=== PATIENT | male | born 1955 | race African-American/Black ===

== ENCOUNTER 2016-07-26 15:57 | Inpatient (IN) | payer BC, OTHER ==
[~2016-07-26] VITALS: Ht 185.4 cm; Wt 125.5 kg
[~2016-07-26 15:57] MED LIST: ACET-1256 PO; ASPEC81 PO; CLB200 PO; ONDA8TAB6 PO; RXC5 PO; SNK PO
[2016-07-26 17:16] LABS: BASO % 0.1 %; BASO ABS # 0.01 K/uL (0-0.2); COMPLETE YES; EOS % 0.1 %; HEMATOCRIT 28.6 % (42-52); IG% 0.2 %; LYMPH ABS # 0.81 K/uL (1.2-3.4); MEAN CELL VOLUME 78.1 fL (80-100); MEAN CORPUSCULAR HEMOGLOBIN 25.1 pg (25-34); MEAN CORPUSCULAR HGB CONC 32.2 g/dl (32-36); MEAN PLATELET VOLUME 8.9 fL (7.4-10.4); MONO % 4.2 %; NEUT % 85.4 %; PLATELET COUNT 381 K/uL (130-400); RED BLOOD COUNT 3.66 M/uL (4.7-6.1); WHITE BLOOD COUNT 8.08 K/uL (4.8-10.8)
[2016-07-26 17:19] LABS: INR 1.1 (0.9-1.1); PROTHROMBIN TIME (PATIENT) 11.4 SECONDS (9.0-12.0)
[2016-07-26 17:25] LABS: BUN/CREATININE RATIO 16.6 (10-20); CALCIUM 9.2 mg/dl (8.5-10.1); CREATININE 1.9 mg/dl (0.60-1.40); POTASSIUM 4.2 mmol/L (3.5-5.1)
--- NOTE | 2016-07-26 17:56 | DIAGNOSTIC IMAGING REPORT ---
CHEST ONE VIEW PORTABLE CLINICAL HISTORY: Back pain. Pneumonia. COMPARISON STUDY: 05/24/2016 FINDINGS: The heart is the upper limits of normal in size. There is aortic tortuosity. Since the prior study, the patient has developed elevation of the interstitium. This could be secondary to either mild cardiogenic interstitial edema, or an interstitial inflammatory process. Clinical and radiographic follow-up is recommended. There are no significant pleural effusions.[ IMPRESSION: Interval development of subtle elevation of the interstitium. This is consistent with either mild interstitial cardiogenic edema, or an interstitial inflammatory process. Clinical and radiographic follow-up is recommended Electronically signed by: Fermin Meza M.D. 07/26/2016 5:55 PM Dictated Date/Time: 07/26/2016 5:53 PM
[2016-07-26] MEDS: SODIUM CHLORIDE 0.9% 1000ML 1,000 ML IV SCH (18:47)
[2016-07-26] MEDS ORDERED: MAGNESIUM HYDROXIDE SUSP 30 ML UDC PO PRN (19:00)
[2016-07-26] MEDS ORDERED: ACETAMINOPHEN 325 MG TAB PO PRN (19:00)
[2016-07-26] MEDS ORDERED: ONDANSETRON INJ 2 MG/ML 2 ML VIAL IV PRN ×2 (19:00→20:30)
[2016-07-26] MEDS ORDERED: POLYETHYLENE (MIRALAX) 17 GM PACK PO PRN (19:00)
--- NOTE | 2016-07-26 19:17 | History and Physical ---
History & Physical Date & Time of Service: Jul 26, 2016 at 18:52 Chief Complaint: Back Pain Primary Care Physician: Edgar Yuen M.D. History of Present Illness This is a 60 yo M with PMHx HTN, borderline diabetes mellitus type II, hx of right hip dislocation x 2, and s/p left total hip arthroplasty by Dr. Rice on 07/16/16. The patient was just discharged on 07/18 sent home with orders to take ASA 81 mg twice daily and wear MAISHA stockings for DVT prophylaxis. The patient reports today was sitting and the table eating at approximately 1600 when he became acutely short of breath, with associated left sided flank pain which wrapped around his back to the right side. He denies ever having chest pain, palpitations, lightheadedness, or dizziness. Pt reports he had not quite been himself, as he had a appetite since the night before. Past Medical/Surgical History Medical Problems: (1) Borderline diabetes Status: Chronic (2) HTN (hypertension) Status: Chronic Surgical Problems: (1) Status post right hip replacement Status: Resolved Family History No pertinent family history Social History Smoking Status: Never Smoker Alcohol Use: socially (may drink up to 6-10 beers once per month) Marital Status: single Occupational Status: retired Immunizations History of Influenza Vaccine: Yes History of Pneumococcal: Yes Allergies Coded Allergies: No Known Allergies (Unverified , 07/26/16) Home Medications Scheduled Acetaminophen (Tylenol), 1,000 MG PO Q8 Aspirin (Aspirin EC Low Dose), 81 MG PO BID Celecoxib (Celebrex), 200 MG PO BID Scheduled PRN Ondansetron Hcl (Zofran), 8 MG PO Q8 PRN for Nausea Oxycodone HCl (Oxycodone HCl), 5-10 MG PO Q4H PRN for Pain Review of Systems Constitutional: No chills, No fever, No sweats ENT: No dental problems, No hearing loss, No sore throat, No tinnitus Respiratory: + dyspnea at rest, + dyspnea on exertion, No cough, No sputum, No wheezing Cardiovascular: No chest pain, No palpitations Abdomen: No constipation, No diarrhea, No nausea, No pain, No vomiting Musculoskeletal: No calf pain, No joint pain, No swelling Genitourinary - Male: No dysuria, No hematuria Neurologic: No numbness/tingling, No paralysis, No weakness Hematologic / Lymphatic: No abnormal bleeding/bruising Integumentary: No rash Physical Exam Vital Signs Date Time Temp Pulse Resp B/P Pulse Ox O2 Delivery O2 Flow Rate FiO2 07/26/16 17:42 97 07/26/16 17:32 100 Room Air 07/26/16 16:10 36.8 104 18 106/65 100 Room Air General Appearance: WD/WN, no apparent distress, + obese Head: normocephalic, atraumatic Eyes: PERRL, EOMI ENT: hearing grossly normal, pharynx normal Neck: no JVD Respiratory/Chest: lungs clear, normal breath sounds, no respiratory distress, no accessory muscle use Cardiovascular: + tachycardia (HR= 100, regular rhythm, S1, S2) Abdomen/GI: normal bowel sounds, non tender, soft, no organomegaly Back: no CVA tenderness Extremities/Musculoskelatal: normal inspection, no calf tenderness, normal capillary refill, no pedal edema Neurologic/Psych: no motor/sensory deficits, alert, normal mood/affect, oriented x 3 Skin: normal color, warm/dry Diagnostics Laboratory Results Results Past 24 Hours Test 07/26/16 16:00 07/26/16 16:54 Range/Units White Blood Count 8.08 4.8-10.8 K/uL Red Blood Count 3.66 4.7-6.1 M/uL Hemoglobin 9.2 14.0-18.0 g/dL Hematocrit 28.6 42-52 % Mean Corpuscular Volume 78.1 80-100 fL Mean Corpuscular Hemoglobin 25.1 25-34 pg Mean Corpuscular Hemoglobin Concent 32.2 32-36 g/dl Platelet Count 381 130-400 K/uL Mean Platelet Volume 8.9 7.4-10.4 fL Neutrophils (%) (Auto) 85.4 % Lymphocytes (%) (Auto) 10.0 % Monocytes (%) (Auto) 4.2 % Eosinophils (%) (Auto) 0.1 % Basophils (%) (Auto) 0.1 % Neutrophils # (Auto) 6.89 1.4-6.5 K/uL Lymphocytes # (Auto) 0.81 1.2-3.4 K/uL Monocytes # (Auto) 0.34 0.11-0.59 K/uL Eosinophils # (Auto) 0.01 0-0.5 K/uL Basophils # (Auto) 0.01 0-0.2 K/uL RDW Standard Deviation 44.9 36.4-46.3 fL RDW Coefficient of Variation 15.7 11.5-14.5 % Immature Granulocyte % (Auto) 0.2 % Immature Granulocyte # (Auto) 0.02 0.00-0.02 K/uL Prothrombin Time 11.4 9.0-12.0 SECONDS Prothromb Time International Ratio 1.1 0.9-1.1 Activated Partial Thromboplast Time 25.5 21.0-31.0 SECONDS Partial Thromboplastin Ratio 1.0 D-Dimer 14291 0-500 ug/L FEU Sodium Level 132 136-145 mmol/L Potassium Level 4.2 3.5-5.1 mmol/L Chloride Level 95 98-107 mmol/L Carbon Dioxide Level 26 21-32 mmol/L Anion Gap 11.0 3-11 mmol/L Blood Urea Nitrogen 32 7-18 mg/dl Creatinine 1.90 0.60-1.40 mg/dl Est Creatinine Clear Calc Drug Dose 57.4 ml/min Estimated GFR () 42.8 Estimated GFR (Non- 37.0 BUN/Creatinine Ratio 16.6 10-20 Random Glucose 142 70-99 mg/dl Calcium Level 9.2 8.5-10.1 mg/dl Bedside Troponin I 0.000 0-0.045 ng/ml Diagnostic Radiology CHEST ONE VIEW PORTABLE CLINICAL HISTORY: Back pain. Pneumonia. COMPARISON STUDY: 05/24/2016 FINDINGS: The heart is the upper limits of normal in size. There is aortic tortuosity. Since the prior study, the patient has developed elevation of the interstitium. This could be secondary to either mild cardiogenic interstitial edema, or an interstitial inflammatory process. Clinical and radiographic follow-up is recommended. There are no significant pleural effusions.[ IMPRESSION: Interval development of subtle elevation of the interstitium. This is consistent with either mild interstitial cardiogenic edema, or an interstitial inflammatory process. Clinical and radiographic follow-up is recommended Electronically signed by: Fermin Meza M.D. 07/26/2016 5:55 PM Dictated Date/Time: 07/26/2016 5:53 PM Impression Assessment and Plan This is a 60 yo M with PMHx HTN, borderline diabetes mellitus type II, hx of right hip dislocation x 2, and s/p left total hip arthroplasty by Dr. Rice on 07/16/16. Shortness of Breath - Admit to tele - S/p L JOSE on 07/[address] Rice - pt was placed on ASA 81 mg BID at that time and instructed to wear [place] - [place] [address] - U/S BLE ordered urgent to r/o DVT - Will start on IVFs - Start heparin gtt with bolus for likely pulmonary embolism, and/or DVT - CTA of the chest not ordered yet with elevated creatinine. Will hydrate overnight and hopefully Cr. will drop overnight to safely give the patient contrast tomorrow. - Tachycardic on exam with HR= 100s - Hold celebrix while on heparin gtt - Follow coags and CBC, PRP with morning labs HTN - Not on any antihypertensive agents - Stable Acute Renal Failure on CKD - Likely secondary to dehydration with poor PO intake - Cr. 1.9, appears that baseline is 1.1-1.2 - Will hydrate overnight, follow am PRP - caution with IV contrast with CTA in morning if not improved. Pre diabetes - Diet controlled, not on medications - Will check A1C - ISS with accuchecks achs DVT ppx: heparin gtt CODE STATUS: Full code Resident Physician Supervision Note: I interviewed and examined the patient. Discussed with Yeny Monroe PAC and agree with findings and plan as documented in the note. Any exceptions or clarifications are listed here: None This pt has back pain along with chest pain, recent ortho surgery strongly suggests DVT/PE. Cr is elevated to make CTA with some risk vital signs are stable car is regular lungs are clear legs with some edema L>R Will perform DVT of legs is positive may consider hydration and acetylcystine to lower Cr and consider CTA in the future, vs just AC for 6 months, alternative would be to do V/Q, this is really just to determine duration of treatment of full AC Documented By: Micah Kingston Level of Care Telemetry Resuscitation Status FULL RESUSCITATION VTE Prophylaxis VTE Risk Assessment Done? Y/N: Yes Risk Level: Moderate Given or contraindicated: Other Anticoagulation, T.E.D. Stockings
--- NOTE | 2016-07-26 20:21 | DIAGNOSTIC IMAGING REPORT ---
ULTRASOUND VENOUS DOPPLER LWR EXT BILA CLINICAL HISTORY: Back pain and leg swelling COMPARISON STUDY: No previous studies for comparison. FINDINGS: Real-time and color flow Doppler imaging were performed. Flow was seen within the femoral, popliteal and calf veins with no intraluminal thrombus demonstrated. The saphenous vein is patent. IMPRESSION: No evidence of lower extremity DVT. Electronically signed by: Fermin Meza M.D. 07/26/2016 8:20 PM Dictated Date/Time: 07/26/2016 8:19 PM
[2016-07-26] MEDS ORDERED: OXYCODONE HCL IR 5 MG TAB (IMMEDIATE RELEASE) PO PRN (20:30)
[2016-07-26] MEDS ORDERED: ACETAMINOPHEN 500 MG TAB PO PRN (20:30)
[2016-07-26] MEDS ORDERED: MoRPHine SULFATE 2 MG/ML CARP IV PRN (20:30)
[2016-07-26] MEDS ORDERED: MoRPHine SULFATE 4 MG/ML 1 ML CARP\\VIAL IV PRN (20:30)
[2016-07-26] MEDS ORDERED: ASPIRIN 81 MG ECTAB PO SCH (21:00)
[2016-07-26] MEDS ORDERED: HEPARIN IV BOLUS 8,000 UNIT in SYRINGE 0 ML IV SCH (21:00)
[2016-07-26] MEDS: HEPARIN 25,000 UNIT/500ML D5W 500 ML IV PRN (21:34)
--- NOTE | 2016-07-26 22:48 | EMERGENCY ROOM VISIT NOTE ---
History Report prepared by Laura: Saundra Garcia Under the Supervision of: Dr. Micah Vicente M.D. First contact with patient: 16:17 Chief Complaint: BACK PAIN Stated Complaint: BACK PAIN History of Present Illness The patient is a 60 year old male who presents to the Emergency Room with complaints of resolved mid to upper back pain that began at 3:45 this afternoon. The patient notes that he was getting ready to leave [employer] when the pain began on the left side of his back. It eventually moved through his entire back to the right side. The pain was sharp and the patient had difficulty breathing due to his discomfort. It resolved after about 20 minutes. In the waiting room, the patient noticed that his fingers were "frozen" and curled up. Currently, the patient does not have any acute pain. The patient occasionally gets left sided mid-upper back pain since just over a year ago, but he notes it does not last long and is not as intense as his pain today. He attributes the occasional pain to the way that he sleeps. The patient had left hip arthroplasty on July [address] Rice. He had a follow up appointment with Dr. Rice today. Denies acute leg swelling or pain, or other complaints. There is no family history of blood clots. He is on aspirin but no other blood thinners. Past medical history includes hypertension and borderline diabetes. He denies chest pain but points to the left anterior axillary line when asked where the pain started. Source of History: patient Onset: 3:45PM Position: back (mid-upper) Quality: sharp, other (Squeezing) Timing: resolved Associated Symptoms: + SOB (resolved), No fevers Note: Other symptoms: fingers swollen and curled Review of Systems See HPI for pertinent positives & negatives. A total of 10 systems reviewed and were otherwise negative. Past Medical & Surgical Medical Problems: (1) Borderline diabetes (2) HTN (hypertension) (3) Instability of right hip joint (4) Right hip pain (5) Shortness of breath at rest Surgical Problems: (1) Post-operative state (2) Post-operative state (3) Post-operative state (4) Status post right hip replacement (5) Status post total hip replacement, right Family History No pertinent family history Social History Smoking Status: Never Smoker Marital Status: single Housing Status: lives with family Occupation Status: retired Current/Historical Medications Scheduled Acetaminophen (Tylenol), 1,000 MG PO Q8 Aspirin (Aspirin EC Low Dose), 81 MG PO BID Celecoxib (Celebrex), 200 MG PO BID Scheduled PRN Ondansetron Hcl (Zofran), 8 MG PO Q8 PRN for Nausea Oxycodone HCl (Oxycodone HCl), 5-10 MG PO Q4H PRN for Pain Allergies Coded Allergies: No Known Allergies (Unverified , 07/26/16) Physical Exam Vital Signs Date Time Temp Pulse Resp B/P Pulse Ox O2 Delivery O2 Flow Rate FiO2 07/26/16 17:42 97 07/26/16 17:32 100 Room Air 07/26/16 16:10 36.8 104 18 106/65 100 Room Air Physical Exam Constitutional: Vital signs reviewed. Eyes: Pupils are equal round reactive to light. Conjunctiva are noninjected. ENT: Pharynx is clear without erythema or exudate. Mucous membranes are moist. Neck supple without meningeal signs. Respiratory: Clear to auscultation bilaterally. Breath sounds are equal bilaterally. Cardiovascular: Regular rate and rhythm. No rubs or gallops. GI: Soft, nondistended and nontender. Bowel sounds are present. Musculoskeletal: No peripheral edema. No lower extremity tenderness. No CVA tenderness. Healing left hip incision without signs of infection. Integumentary: No cyanosis. Neurological: The patient is awake and alert. No focal deficits. Psychiatric: Normal affect. Medical Decision & Procedures ER Provider Diagnostic Interpretation: X-ray results as stated below per interpretation by me and the radiologist. Other radiology results as stated below per my review and the radiologist's interpretation: CHEST ONE VIEW PORTABLE CLINICAL HISTORY: Back pain. Pneumonia. COMPARISON STUDY: 05/24/2016 FINDINGS: The heart is the upper limits of normal in size. There is aortic tortuosity. Since the prior study, the patient has developed elevation of the interstitium. This could be secondary to either mild cardiogenic interstitial edema, or an interstitial inflammatory process. Clinical and radiographic follow-up is recommended. There are no significant pleural effusions.[ IMPRESSION: Interval development of subtle elevation of the interstitium. This is consistent with either mild interstitial cardiogenic edema, or an interstitial inflammatory process. Clinical and radiographic follow-up is recommended Electronically signed by: Fermin Meza M.D. 07/26/2016 5:55 PM Dictated Date/Time: 07/26/2016 5:53 PM ULTRASOUND VENOUS DOPPLER LWR EXT BILA CLINICAL HISTORY: Back pain and leg swelling COMPARISON STUDY: No previous studies for comparison. FINDINGS: Real-time and color flow Doppler imaging were performed. Flow was seen within the femoral, popliteal and calf veins with no intraluminal thrombus demonstrated. The saphenous vein is patent. IMPRESSION: No evidence of lower extremity DVT. Electronically signed by: Fermin Meza M.D. 07/26/2016 8:20 PM Dictated Date/Time: 07/26/2016 8:19 PM Laboratory Results 07/26/16 16:00 Red Blood Count 3.66, Mean Corpuscular Volume 78.1, Mean Corpuscular Hemoglobin 25.1, Mean Corpuscular Hemoglobin Concent 32.2, Mean Platelet Volume 8.9, Neutrophils (%) (Auto) 85.4, Lymphocytes (%) (Auto) 10.0, Monocytes (%) (Auto) 4.2, Eosinophils (%) (Auto) 0.1, Basophils (%) (Auto) 0.1, Neutrophils # (Auto) 6.89, Lymphocytes # (Auto) 0.81, Monocytes # (Auto) 0.34, Eosinophils # (Auto) 0.01, Basophils # (Auto) 0.01 07/26/16 16:00 Test 07/26/16 16:00 07/26/16 16:54 White Blood Count 8.08 K/uL (4.8-10.8) Red Blood Count 3.66 M/uL (4.7-6.1) Hemoglobin 9.2 g/dL (14.0-18.0) Hematocrit 28.6 % (42-52) Mean Corpuscular Volume 78.1 fL (80-100) Mean Corpuscular Hemoglobin 25.1 pg (25-34) Mean Corpuscular Hemoglobin Concent 32.2 g/dl (32-36) Platelet Count 381 K/uL (130-400) Mean Platelet Volume 8.9 fL (7.4-10.4) Neutrophils (%) (Auto) 85.4 % Lymphocytes (%) (Auto) 10.0 % Monocytes (%) (Auto) 4.2 % Eosinophils (%) (Auto) 0.1 % Basophils (%) (Auto) 0.1 % Neutrophils # (Auto) 6.89 K/uL (1.4-6.5) Lymphocytes # (Auto) 0.81 K/uL (1.2-3.4) Monocytes # (Auto) 0.34 K/uL (0.11-0.59) Eosinophils # (Auto) 0.01 K/uL (0-0.5) Basophils # (Auto) 0.01 K/uL (0-0.2) RDW Standard Deviation 44.9 fL (36.4-46.3) RDW Coefficient of Variation 15.7 % (11.5-14.5) Immature Granulocyte % (Auto) 0.2 % Immature Granulocyte # (Auto) 0.02 K/uL (0.00-0.02) Prothrombin Time 11.4 SECONDS (9.0-12.0) Prothromb Time International Ratio 1.1 (0.9-1.1) Activated Partial Thromboplast Time 25.5 SECONDS (21.0-31.0) Partial Thromboplastin Ratio 1.0 D-Dimer 18137 ug/L FEU (0-500) Anion Gap 11.0 mmol/L (3-11) Est Creatinine Clear Calc Drug Dose 57.4 ml/min Estimated GFR () 42.8 Estimated GFR (Non- 37.0 BUN/Creatinine Ratio 16.6 (10-20) Calcium Level 9.2 mg/dl (8.5-10.1) Bedside Troponin I 0.000 ng/ml (0-0.045) Laboratory results as reviewed by me. Medications Administered Medications (Trade) Dose Ordered Sig/Robbin Route Start Time Stop Time Status Last Admin Dose Admin Sodium Chloride (Nss 1000ml) 1,000 ml @ 125 mls/hr Q8H IV 07/26/16 18:47 08/25/16 18:46 07/26/16 18:47 125 MLS/HR ECG Indication: back/shoulder pain Rate (beats per minute): 99 Rhythm: normal sinus Findings: no ectopy, other (Increased R/S ratio in V1, consider early transition or posterior infarct) Change: Posterior lead EKG: sinus tachycardia at 106 BPM, no ST elevations or Q waves to suggest posterior wall RI. ED Course 1619: The patient was evaluated in room A4. A complete history and physical exam was performed. 1658: I reassessed the patient. He was currently not complaining of any pain. He had labs drawn but we are waiting on the EKG. 1808: I reassessed the patient and talked to him about results. He agreed to hospitalization. 1810: I discussed the case with Dr. Vashti BAKER Hospitalist. The patient will be evaluated for further management. Medical Decision This is a 60-year-old male who presents with back pain and shortness of breath. Differential diagnosis includes pulmonary embolism, pneumothorax, pneumonia, strain, aortic dissection, posterior RI. I did perform a limited focused review of portions of the patient's old chart on the electronic medical record. He was admitted July 16 for left hip arthroplasty by Dr. Rice. I did evaluate the patient as noted above. Patient is presenting with left- sided chest and thoracic back pain. He states he was leaving a restaurant and he became very short of breath at the time. It is fairly intense. He has had similar pain for about a year but states that it was very minor. When asked whether it happens with exertion he states he does not exert himself, although he does get short of breath with exertion. I was concerned about potential cardiac disease versus pulmonary embolism given his recent surgery. IV access was established. The patient was placed on a continuous monitor and storage bin tender. I did order and personally review the patient's 12-lead EKG and chest x-ray as described above. A posterior I EKG was obtained and did not show any evidence of posterior wall RI per my interpretation. I did order and review the patient's blood work as noted in the electronic medical record. His d- dimer is severely elevated but unfortunately I could not obtain a CT because his creatinine was also elevated. Troponin is negative. He'll require repeat cardiac enzymes. I did recommend hospitalization at this point for further evaluation and potential V/Q scanning. I did discuss case with the hospitalist and case checker. I did order ultrasounds of the lower extremities this did not show any evidence of DVT. Consults Time Called: 1808 Consulting Physician: Dr. Vashti BAKER Hospitalist Returned Call: 1810 I discussed the case with him. The patient will be evaluated for further management. Impression Primary Impression: Left sided chest pain Additional Impression: Thoracic back pain Scribe Attestation The scribe's documentation has been prepared under my direct and personally reviewed by me in its entirety. I confirm that the note above accurately reflects all work, treatment, procedures, and medical decision making performed by me. Departure Information Dispostion Being Evaluated By Hospitalist Referrals Edgar Yuen M.D. (PCP) Patient Instructions A Signature Page, My [facility]
[2016-07-26] MEDS: ACETYLCYSTEINE 600 MG CAP PO SCH (23:35)
[2016-07-27] VITALS (8 sets, daily range): BP systolic 112–128; BP diastolic 73–85; PULSE 86–100; TEMP 36.4–36.9; O2SAT 97–99; Ht 185.4 cm; Wt 125.5 kg
[2016-07-27] MEDS: SODIUM CHLORIDE 0.9% 1000ML 1,000 ML IV SCH ×3 (01:30→18:29)
[2016-07-27 03:59] LABS: BASO % 0.1 %; BASO ABS # 0.01 K/uL (0-0.2); EOS % 2.2 %; HEMATOCRIT 26.5 % (42-52); IG% 0.4 %; LYMPH % 37.3 %; LYMPH ABS # 2.99 K/uL (1.2-3.4); MEAN CORPUSCULAR HGB CONC 32.5 g/dl (32-36); MEAN PLATELET VOLUME 8.7 fL (7.4-10.4); MONO % 9.9 %; NEUT % 50.1 %; PLATELET COUNT 329 K/uL (130-400); RED BLOOD COUNT 3.44 M/uL (4.7-6.1); WHITE BLOOD COUNT 8.01 K/uL (4.8-10.8)
[2016-07-27 04:19] LABS: INR 1.1 (0.9-1.1); PARTIAL THROMBOPLASTIN RATIO 2.1; PROTHROMBIN TIME (PATIENT) 11.4 SECONDS (9.0-12.0)
[2016-07-27 04:26] LABS: BUN/CREATININE RATIO 18.1 (10-20); CALCIUM 8.7 mg/dl (8.5-10.1); POTASSIUM 3.3 mmol/L (3.5-5.1)
[2016-07-27 04:31] LABS: COMPLETE YES; HYPERSEGMENTED POLYS 1+
[2016-07-27 06:52] LABS: ESTIMATED AVERAGE GLUCOSE 111 mg/dl; HA1C FLAG Normal (Normal)
[2016-07-27] MEDS ORDERED: POTASSIUM CHLORIDE 20 MEQ TABCR PO STA (08:30)
[2016-07-27] MEDS: ACETYLCYSTEINE 600 MG CAP PO SCH (09:09)
--- NOTE | 2016-07-27 12:56 | Progress Note ---
Subjective Date of Service: Jul 27, 2016. Subjective Pt evaluation today including: conversation w/ patient, physical exam, chart review, lab review, review of studies, review of inpatient medication list Pt seen and examined Resting comfortably in bed, denies any acute distress No shortness of breath noted today No cough noted Problem List Medical Problems: (1) Dislocation of hip prosthesis Status: Acute (2) Hip dislocation, right Status: Acute (3) Left sided chest pain Status: Acute (4) Thoracic back pain Status: Acute Review of Systems Constitutional: No chills, No fever Respiratory: No cough, No dyspnea on exertion, No shortness of breath, No sputum, No wheezing Cardiac: + chest pain, No PND, No edema, No orthopnea Abdomen: No constipation, No diarrhea, No nausea, No pain, No vomiting Musculoskeletal: No joint pain, No muscle pain Male : No dysuria, No urinary frequency Neurologic: No memory loss, No paralysis, No weakness Objective Vital Signs Date Time Temp Pulse Resp B/P Pulse Ox O2 Delivery O2 Flow Rate FiO2 07/27/16 11:54 36.6 86 18 113/75 99 Room Air 07/27/16 11:50 Room Air 07/27/16 07:45 Room Air 07/27/16 07:27 36.7 89 20 112/73 97 Room Air 07/27/16 04:16 36.9 96 20 128/85 99 Room Air 07/27/16 04:00 Room Air 07/27/16 01:00 36.4 98 16 128/75 97 Room Air 07/27/16 00:20 91 18 116/78 98 07/26/16 23:00 100 07/26/16 23:00 94 16 99 Room Air 07/26/16 21:00 101 16 105/67 98 07/26/16 18:51 92 16 113/74 98 Room Air 07/26/16 17:42 97 07/26/16 17:32 100 Room Air 07/26/16 16:10 36.8 104 18 106/65 100 Room Air Physical Exam General Appearance: WD/WN, no apparent distress Neck: supple, no adenopathy Respiratory/Chest: lungs clear, normal breath sounds Cardiovascular: regular rate, rhythm, no edema, no gallop Abdomen: non tender, soft Neurologic/Psychiatric: alert, oriented x 3 Laboratory Results Last 24 Hours Test 07/26/16 16:00 07/26/16 16:54 07/27/16 03:42 07/27/16 07:35 White Blood Count 8.08 K/uL 8.01 K/uL Red Blood Count 3.66 M/uL 3.44 M/uL Hemoglobin 9.2 g/dL 8.6 g/dL Hematocrit 28.6 % 26.5 % Mean Corpuscular Volume 78.1 fL 77.0 fL Mean Corpuscular Hemoglobin 25.1 pg 25.0 pg Mean Corpuscular Hemoglobin Concent 32.2 g/dl 32.5 g/dl Platelet Count 381 K/uL 329 K/uL Mean Platelet Volume 8.9 fL 8.7 fL Neutrophils (%) (Auto) 85.4 % 50.1 % Lymphocytes (%) (Auto) 10.0 % 37.3 % Monocytes (%) (Auto) 4.2 % 9.9 % Eosinophils (%) (Auto) 0.1 % 2.2 % Basophils (%) (Auto) 0.1 % 0.1 % Neutrophils # (Auto) 6.89 K/uL 4.01 K/uL Lymphocytes # (Auto) 0.81 K/uL 2.99 K/uL Monocytes # (Auto) 0.34 K/uL 0.79 K/uL Eosinophils # (Auto) 0.01 K/uL 0.18 K/uL Basophils # (Auto) 0.01 K/uL 0.01 K/uL RDW Standard Deviation 44.9 fL 44.6 fL RDW Coefficient of Variation 15.7 % 15.7 % Immature Granulocyte % (Auto) 0.2 % 0.4 % Immature Granulocyte # (Auto) 0.02 K/uL 0.03 K/uL Prothrombin Time 11.4 SECONDS 11.4 SECONDS Prothromb Time International Ratio 1.1 1.1 Activated Partial Thromboplast Time 25.5 SECONDS 54.3 SECONDS Partial Thromboplastin Ratio 1.0 2.1 D-Dimer 35534 ug/L FEU Sodium Level 132 mmol/L 134 mmol/L Potassium Level 4.2 mmol/L 3.3 mmol/L Chloride Level 95 mmol/L 96 mmol/L Carbon Dioxide Level 26 mmol/L 29 mmol/L Anion Gap 11.0 mmol/L 9.0 mmol/L Blood Urea Nitrogen 32 mg/dl 36 mg/dl Creatinine 1.90 mg/dl 2.00 mg/dl Est Creatinine Clear Calc Drug Dose 57.4 ml/min 53.0 ml/min Estimated GFR () 42.8 40.3 Estimated GFR (Non- 37.0 34.7 BUN/Creatinine Ratio 16.6 18.1 Random Glucose 142 mg/dl 126 mg/dl Estimated Average Glucose 111 mg/dl Hemoglobin A1c 5.5 % Calcium Level 9.2 mg/dl 8.7 mg/dl Bedside Troponin I 0.000 ng/ml Hypersegmented Polys 1+ Bedside Glucose 139 mg/dl Test 07/27/16 11:39 07/27/16 12:47 Bedside Glucose 126 mg/dl Assessment and Plan This is a 60 yo M with PMHx HTN, borderline diabetes mellitus type II, hx of right hip dislocation x 2, and s/p left total hip arthroplasty by Dr. Rice on 07/16/16. Shortness of Breath - Admitted to tele - S/p L JOSE on 07/[address] Rice - pt was placed on ASA 81 mg BID at that time and instructed to wear [place] - [place] [address] - U/S BLE no DVT - Will start on IVFs to improve acute on chronic kidney failure stage 3 - Cont heparin gtt for likely pulmonary embolism, and/or DVT - CTA of the chest not ordered yet with elevated creatinine. May need to do V/Q if no improvement. - Hold celebrix while on heparin gtt - Follow coags and CBC, PRP with morning labs HTN - Not on any antihypertensive agents - Stable Acute kidney failure on CKD stage 3 - Likely secondary to dehydration with poor PO intake - Cr. 1.9 -->2.0, appears that baseline is 1.1-1.2 Pre diabetes - Diet controlled, not on medications - Will check A1C - ISS with accuchecks achs DVT ppx: heparin gtt CODE STATUS: Full code
[2016-07-27] MEDS: HEPARIN 25,000 UNIT/500ML D5W 500 ML IV PRN (13:52)
[2016-07-27 14:07] LABS: BUN/CREATININE RATIO 20.8 (10-20); CREATININE 1.6 mg/dl (0.60-1.40)
[2016-07-27] MEDS ORDERED: OPTIRAY 320 IV PRN (15:30)
--- NOTE | 2016-07-27 15:57 | DIAGNOSTIC IMAGING REPORT ---
CHEST CTA for PULMONARY ARTERIES CT DOSE: 819.10 mGy.cm HISTORY: Short of breath. TECHNIQUE: Multiaxial CT images of the chest were performed following the intravenous administration of contrast to evaluate the pulmonary arteries. Maximal intensity projection images were also obtained. COMPARISON STUDY: Chest 07/26/2016. FINDINGS: Normal caliber thoracic aorta with no evidence for dissection. The main and lobar pulmonary arteries are patent. Some of the segmental and subsegmental arteries are partially obscured by motion artifact. However, no definite evidence for pulmonary embolus. No pleural or pericardial effusions. The liver, spleen, and adrenal glands are unremarkable. No mediastinal or hilar lymphadenopathy. Small fat-containing left-sided Bochdalek hernia. Old, healed left anterior third rib fracture. No pneumothorax. The central airways are patent. The left lung is clear. There is a 3 mm nodule within the right lower lobe on image 208. A 6 mm subpleural nodule within the right lower lobe on image 170. IMPRESSION: 1. No definite evidence for pulmonary embolus. 2. A total of 2 subcentimeter indeterminate pulmonary nodules within the right lower lobe with the largest measuring 6 mm. Please refer to the chart below for recommended follow-up. Please refer to below summary of Fleischner criteria recommendations for follow-up of incidental CT nodules (Amie Shankar, Guidelines for management of small pulmonary nodules detected on CT scans: A statement from the Fleischner Society, Radiology 237: [phone].) Low Risk Patient: Minimal or no smoking or other known risk factors for malignancy <=4 mm: No follow-up needed. >4-6 mm: Initial follow-up CT at 12 months; if unchanged, no further follow-up. >6-8 mm: Initial follow-up CT at 6-12 months then at 18-24 months if no change. >8 mm: Follow-up CT at \R\3, 9, 24 months, or PET and/or biopsy. High Risk Patient: History of smoking or other known risk factors <=4 mm: Follow-up at 12 months; if unchanged, no further follow-up. >4-6 mm: Initial follow-up CT at 6-12 months then at 18-24 months if no change. >6-8 mm: Initial follow-up CT at 3-6 months then at 9-12 and 24 months if no change. >8 mm: Same as low risk patient. Note: Nodule size measured as average of length and width. Ground glass or partly solid nodules may require longer follow-up to exclude indolent adenocarcinoma. Electronically signed by: Gerardo Radford M.D. 07/27/2016 3:55 PM Dictated Date/Time: 07/27/2016 3:45 PM
[2016-07-27] MEDS ORDERED: NURSING VERBAL MED ORDER ONE (17:45)
[2016-07-28] VITALS: O2SAT 97
[2016-07-28 01:10] VITALS: BP 121/74; PULSE 98; TEMP 37; O2SAT 99
[2016-07-28] MEDS: SODIUM CHLORIDE 0.9% 1000ML 1,000 ML IV SCH (02:32)
[2016-07-28 04:00] VITALS: O2SAT 97
[2016-07-28 04:52] VITALS: BP 132/84; PULSE 107; TEMP 36.9; O2SAT 97
[2016-07-28 06:12] LABS: BASO % 0.2 %; BASO ABS # 0.01 K/uL (0-0.2); EOS % 2.7 %; HEMATOCRIT 26.1 % (42-52); IG% 0.2 %; LYMPH % 27.9 %; LYMPH ABS # 1.46 K/uL (1.2-3.4); MEAN CELL VOLUME 77.7 fL (80-100); MEAN CORPUSCULAR HEMOGLOBIN 24.7 pg (25-34); MEAN CORPUSCULAR HGB CONC 31.8 g/dl (32-36); MEAN PLATELET VOLUME 8.4 fL (7.4-10.4); MONO % 7.3 %; NEUT % 61.7 %; PLATELET COUNT 300 K/uL (130-400); RED BLOOD COUNT 3.36 M/uL (4.7-6.1); WHITE BLOOD COUNT 5.24 K/uL (4.8-10.8)
[2016-07-28 06:22] LABS: INR 1.1 (0.9-1.1); PROTHROMBIN TIME (PATIENT) 11.4 SECONDS (9.0-12.0)
[2016-07-28 06:37] LABS: COMPLETE YES
[2016-07-28 06:44] LABS: BUN/CREATININE RATIO 19.2 (10-20); CALCIUM 8.8 mg/dl (8.5-10.1); CREATININE 1.2 mg/dl (0.60-1.40); POTASSIUM 3.9 mmol/L (3.5-5.1)
[2016-07-28 07:44] VITALS: BP 164/76; PULSE 104; TEMP 36.5; O2SAT 97
--- NOTE | 2016-07-28 09:18 | Discharge Instructions ---
Discharge Instructions Admission Reason for Admission: Shortness Of Breath At Rest Discharge Discharge Diagnosis / Problem: Shortness of breath Discharge Goals Goal(s): Decrease discomfort, Improve function, Increase independence, Improve disease control, Diagnostic testing, Therapeutic intervention Activity Recommendations Activity Limitations: resume your previous activity . Instructions / Follow-Up Instructions / Follow-Up Patient to be discharged home No clots found in lung or in legs Please remember to continue taking aspirin twice day Will need to follow up with lung nodule clinic on discharge as well Dr Yuen in 1-2 weeks Current Hospital Diet Patient's current hospital diet: Diabetes Type 2 Diet Discharge Diet Recommended Diet: Diabetes Type 2 Diet Pending Studies Studies pending at discharge: no Laboratory Results Hemoglobin A1c Test 07/26/16 16:00 Range/Units Estimated Average Glucose 111 mg/dl Hemoglobin A1c 5.5 4.5-5.6 % Medical Emergencies . Who to Call and When: Medical Emergencies: If at any time you feel your situation is an emergency, please call 911 immediately. . Non-Emergent Contact Non-Emergency issues call your: Primary Care Provider Call Non-Emergent contact if: you have a fever, your pain is worsening . . "Provider Documentation" section prepared by Shamar Tucker. VTE Core Measure Inpt VTE Proph given/why not?: Unfractionated heparin SQ, T.E.D. Stockings
[2016-07-28 10:07] VITALS: BP 164/76; PULSE 104; TEMP 36.5; O2SAT 97
--- NOTE | 2016-07-28 11:04 | Discharge Summary ---
Discharge Summary Admission Date: Jul 26, 2016 at 18:52 Discharge Date: Jul 28, 2016 Discharge Disposition: Home Principal Diagnosis: Shortness of breath Immunizations: Have You Had Influenza Vaccine: Yes History of Pneumococcal: Yes Medication Reconciliation Continued Medications: Acetaminophen (Tylenol) 500 Mg Tab 1000 MG PO Q8 for 30 Days, #180 TAB Aspirin (Aspirin EC Low Dose) 81 Mg Ectab 81 MG PO BID for 30 Days Celecoxib (Celebrex) 200 Mg Cap 200 MG PO BID, #60 CAP Ondansetron Hcl (Zofran) 8 Mg Tab 8 MG PO Q8 PRN for Nausea, #20 TAB Oxycodone HCl (Oxycodone HCl) 5 Mg Tab 5-10 MG PO Q4H PRN for Pain, #60 TAB Discharge Exam Review of Systems: Constitutional: No chills, No fever Respiratory: No cough, No sputum Cardiovascular: No chest pain, No orthopnea Abdomen: No nausea, No pain, No vomiting Musculoskeletal: No joint pain, No muscle pain Genitourinary - Male: No dysuria, No hematuria Physical Exam: General Appearance: WD/WN, no apparent distress Neck: supple, no adenopathy Cardiovascular: no edema, no gallop Abdomen / GI: non tender, soft Neurologic/Psychiatric: alert, oriented x 3 Hospital Course This is a 60 yo M with PMHx HTN, borderline diabetes mellitus type II, hx of right hip dislocation x 2, and s/p left total hip arthroplasty by Dr. Rice on 07/16/16. Shortness of Breath - Admitted to tele - S/p L JOSE on 07/[address] Rice - pt was placed on ASA 81 mg BID at that time and instructed to wear MAISHA [place]ings - [place] [address] - U/S BLE no DVT - Will start on IVFs to improve acute on chronic kidney failure stage 3 - Cont heparin gtt for likely pulmonary embolism, and/or DVT - CTA determined no PE but did note a total of 2 subcentimeter indeterminate pulmonary nodules within the right lower lobe with the largest measuring 6 mm. Heparin drip dced and sob resolved. Discharged home with f/u pulmonary nodule clinic HTN - Not on any antihypertensive agents - Stable Acute kidney failure on CKD stage 3 - Likely secondary to dehydration with poor PO intake - Cr. 1.9 -->2.0-->1.6-->1.2, appears that baseline is 1.1-1.2 Pre diabetes - Diet controlled, not on medications - Will check A1C - ISS with accuchecks achs DVT ppx: heparin gtt CODE STATUS: Full code Total Time Spent: Greater than 30 minutes This includes examination of the patient, discharge planning, medication reconciliation, and communication with other providers. Discharge Instructions Please refer to the electronic Patient Visit Report (Discharge Instructions) for additional information. Additional Copies To Edgar Yuen M.D.
== END 2016-07-28 11:07 | disposition home health service (06) | DRG 204 ==
LOC: ENRESERVDT → ENRESERVTM → C.EDB 15:59 → C.EDINP 18:52 → C.MED 07-27 01:00
PROVIDERS: ADMIT Internal Medicine; ATTEND Hospitalist
DX: R06.02 Shortness of breath (principal); N17.9 Acute kidney failure, unspecified; R91.8 Other nonspecific abnormal finding of lung field; R79.1 Abnormal coagulation profile; E86.0 Dehydration; M54.6 Pain in thoracic spine; R07.9 Chest pain, unspecified; N18.3 Chronic kidney disease, stage 3 (moderate); I12.9 Hypertensive chronic kidney disease with stage 1 through stage 4 chronic kidney disease, or unspecified chronic kidney disease; R73.03 Prediabetes; E66.9 Obesity, unspecified; Z51.81 Encounter for therapeutic drug level monitoring; Z79.899 Other long term (current) drug therapy; Z79.82 Long term (current) use of aspirin; Z96.643 Presence of artificial hip joint, bilateral; Z68.36 Body mass index [BMI] 36.0-36.9, adult

== ENCOUNTER → 2017-01-28 | Outpatient (CLI) | payer BC ==
[~2017-01-28] MED LIST changes: -ONDA8TAB6 PO; -SNK PO
--- NOTE | 2017-01-28 14:05 | DIAGNOSTIC IMAGING REPORT ---
(CHEST) THORAX WITHOUT HISTORY:61 yearsMalePULMONARY NODULE There is a follow-up exam. COMPARISON: CTA 07/27/2016. TECHNIQUE: Multiple axial CT images of the chest were obtained without IV contrast. FINDINGS: Thyroid is mildly enlarged and heterogeneous without dominant nodule identified. Mild bilateral axillary adenopathy is likely physiologic without pathologically enlarged lymph nodes seen by CT size criteria. Heart is normal in size without pericardial effusion. Thoracic aorta appears normal in both course and caliber. There is no pneumothorax, pleural effusion or new focal airspace consolidation. There is a small left Bochdalek hernia. 6 mm pleural-based opacity of the lateral basal segment right lower lobe is again seen on image 41 of the axial series which appears unchanged. There is some adjacent mild pleural parenchymal scarring. There is an unchanged 3 mm noncalcified pulmonary nodule within the superior segment right lower lobe no new pulmonary nodules. Central airways are patent. Upper abdominal structures are within normal limits. Soft tissues are unremarkable. There is mild symmetric appearing bilateral gynecomastia. Bones are intact. 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 IMPRESSION: 1. Stable appearance of the noncalcified pulmonary nodules of the right lung, largest of which is within the right lower lobe, 6 mm. This is pleural-based and may reflect a focal area of pleural parenchymal scarring. Follow-up according to the guidelines below recommended. 2. No acute cardiopulmonary process. Please refer to below summary of Fleischner criteria recommendations for follow-up of incidental CT nodules (Amie Shankar, Guidelines for management of small pulmonary nodules detected on CT scans: A statement from the Fleischner Society, Radiology 237: [phone].) SOLID NODULES Multiple nodules size: <6 mm * Low risk patients: no routine follow-up * high risk patients: optional CT at 12 months Multiple nodules size: 6-8 mm * Low risk patients: follow-up at 3-6 months, then consider further follow-up at 18-24 months * high risk patients: follow-up at 3-6 months, then at 18-24 months if no change Note: newly detected indeterminate nodule in persons 35 years of age or older. * Low risk patients: minimal or absent history of smoking and/or other known risk factors * high risk patients: history of smoking or of other known risk factors (e.g. first degree relative with lung cancer, or exposure to asbestos, radon, uranium) * if a nodule up to 8 mm is partly solid or is ground glass further follow-up is required after 24 months to exclude possible slow growing adenocarcinoma (FERNANDO) The above report was generated using voice recognition software. It may contain grammatical, syntax or spelling errors. Electronically signed by: Andrew Marcos 01/28/2017 2:04 PM Dictated Date/Time: 01/28/2017 1:56 PM
== END | disposition home or self-care (01) ==
LOC: C.CTS 13:24
PROVIDERS: ATTEND Family Medicine
DX: R91.8 Other nonspecific abnormal finding of lung field (principal)

== ENCOUNTER → 2017-10-10 | Outpatient (CLI) | payer BC ==
--- NOTE | 2017-10-10 18:40 | DIAGNOSTIC IMAGING REPORT ---
BONE SCAN 3 PHASE LIMITED CLINICAL HISTORY: PAIN AND SWELLING S/P TIFFANIE JOSE pain. Edema. TECHNIQUE: 3 phase imaging following the administration of 26.8 mCi technetium 99m HDP COMPARISON STUDY: None FINDINGS: Initial vascular flow images show unremarkable flow characteristics. Blood pool images show symmetric activity overlying the pelvis and hips. Delayed images show presence of bilateral hip arthroplasties. No abnormal activity is identified. There is trace increase in activity adjacent to the inferior stem of the femoral prosthetic bilaterally. This can be a normal variant. IMPRESSION: Negative three-phase bone scan of the pelvis and hips The above report was generated using voice recognition software. It may contain grammatical, syntax or spelling errors. Electronically signed by: Manny Fairchild M.D. 10/10/2017 6:39 PM Dictated Date/Time: 10/10/2017 6:37 PM
== END | disposition home or self-care (01) ==
LOC: C.NUCL 14:51
DX: Z47.1 Aftercare following joint replacement surgery (principal)